=== PATIENT | female | born 1950 | race Caucasian/White ===

== ENCOUNTER 2020-12-16 09:57 | Outpatient (REF) | payer MEDICARE, SELFPAY ==
--- NOTE | ~2020-12-16 | XR_ITS ---
EXAMINATION: XR SINUSES CLINICAL INFORMATION: Sinusitis COMPARISON: None TECHNIQUE: 3 views of the sinuses were obtained. FINDINGS: There is underaeration or hypoplasia of the left frontal sinus. Paranasal sinuses are otherwise well aerated and clear. No opacification or air-fluid level to suggest sinusitis is seen. Bony structures are unremarkable. XR/XR sinus min 3V IMPRESSION: No evidence of sinusitis.
== END 2020-12-16 09:58 | disposition home or self-care (01) ==
LOC: HO.XRAY 09:57
PROVIDERS: PCP Internal Medicine; Visit Provider Otolaryngology
DX: J32.9 Chronic sinusitis, unspecified (principal)
CPT/HCPCS: 70220

== ENCOUNTER 2022-11-27 14:36 | Outpatient (REF) | payer MEDICARE, SELFPAY ==
[2022-11-27 15:44] LABS: Influenza A PCR NEGATIVE (Negative); Influenza B PCR NEGATIVE (Negative); Resp Syncy Virus RNA Qual PCR NEGATIVE (Negative); SARS COV2 PCR INHOUSE NEGATIVE (Negative)
== END 2022-11-27 14:37 | disposition home or self-care (01) ==
LOC: HO.LNP 14:36
PROVIDERS: Visit Provider Physician Assistant
DX: Z20.822 Contact with and (suspected) exposure to COVID-19 (principal); H93.8X2 Other specified disorders of left ear
CPT/HCPCS: 0241U

== ENCOUNTER 2024-04-11 09:45 | Outpatient (REF) | payer MEDICARE, SELFPAY ==
--- NOTE | ~2024-04-11 | XR_ITS ---
EXAMINATION: XR FOOT, LEFT CLINICAL INFORMATION: Residual foreign body in soft tissue. Evaluate for foreign body near the heel, lateral aspect of the foot. COMPARISON: None available. TECHNIQUE: 3 views of the left foot. FINDINGS: On the oblique view, there appears to be a very small skin defect in the area of concern without radiopaque foreign body. Bones have normal alignment throughout the foot. No acute fracture or subluxation. The joints are unremarkable. XR/XR foot LT min 3V IMPRESSION: No evidence of radiopaque foreign body. No acute osseous injury.
== END 2024-04-11 09:46 | disposition home or self-care (01) ==
LOC: HO.HMGCX 09:45
PROVIDERS: PCP Internal Medicine; Visit Provider Nurse Practitioner Family
DX: M79.5 Residual foreign body in soft tissue (principal)
CPT/HCPCS: 73630

== ENCOUNTER 2024-05-27 08:00 | Outpatient (RCR) | payer MEDICARE, SELFPAY | END 2024-07-31 14:56 | disposition home or self-care (01) | LOC: HO.WCC 08:00 | PROVIDERS: PCP Internal Medicine; Visit Provider Surgery | DX: I87.312 Chronic venous hypertension (idiopathic) with ulcer of left lower extremity (principal); L97.422 Non-pressure chronic ulcer of left heel and midfoot with fat layer exposed; Z79.891 Long term (current) use of opiate analgesic | CPT/HCPCS: 11042; 99212 ==